=== PATIENT | female | born 1970 | race Caucasian/White ===

== ENCOUNTER 2019-03-05 09:17 | Emergency (ER) | payer OTHER, BC ==
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
[2019-03-05 10:19] LABS: ALT 24 U/L (9-52); AST 20 U/L (14-36); Albumin 4.6 g/dL (3.5-5.0); Alcohol <10 mg/dL; Alkaline Phosphatase 82 U/L (38-126); Anion Gap 8 mmol/L; Blood Urea Nitrogen 20 mg/dL (7-17); Calcium 10.3 mg/dL (8.4-10.2); Carbon Dioxide 26 mmol/L (22-30); Chloride 107 mmol/L (98-107); Creatine Kinase 57 U/L (30-135); Glucose 90 mg/dL (74-99); Potassium 4.1 mmol/L (3.5-5.1); Sodium 141 mmol/L (137-145); Total Bilirubin 0.5 mg/dL (0.2-1.3); Total Protein 7.3 g/dL (6.3-8.2)
[2019-03-05 10:25] LABS: Basophils % (A) 0 %; Eosinophils # (A) 0.2 k/uL (0-0.7); Eosinophils % (A) 3 %; HCT 44.6 % (34.0-46.0); HGB 14.7 gm/dL (11.4-16.0); Lymphocytes # (A) 0.8 k/uL (1.0-4.8); Lymphocytes % (A) 12 %; MCH 27.1 pg (25.0-35.0); MCV 82.1 fL (80.0-100.0); Mean Platelet Volume 6.9; Monocytes # (A) 0.6 k/uL (0-1.0); Monocytes % (A) 9 %; Neutrophils # (A) 5.3 k/uL (1.3-7.7); Neutrophils % (A) 73 %; Platelet Count 298 k/uL (150-450); RBC 5.43 m/uL (3.80-5.40); RDW 14.9 % (11.5-15.5); WBC 7.3 k/uL (3.8-10.6)
[2019-03-05 10:28] LABS: INR 0.9 (<1.2); Prothrombin Time 9.8 sec (9.0-12.0)
[2019-03-05 10:33] LABS: Partial Thromboplastin Time 21.8 sec (22.0-30.0)
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
[2019-03-05 11:03] LABS: Appearance,Urine Clear (Clear); Bacteria,Urine Rare /hpf; Bilirubin,Urine Negative (Negative); Blood,Urine Trace (Negative); Color,Urine Yellow; Glucose,Urine (UA) Negative (Negative); Ketones,Urine Negative (Negative); Leukocyte Esterase,Urine Negative (Negative); Mucus,Urine Rare /hpf; Nitrite,Urine Negative (Negative); PH, Urine 6.5 (5.0-8.0); Protein,Urine 2+ (Negative); RBC,Urine 1 /hpf (0-5); Specific Gravity,Urine 1.023 (1.001-1.035); Squamous Epithelial Cell,Urine 5 /hpf (0-4); Urobilinogen,Urine <2.0 mg/dL (<2.0); WBC,Urine 2 /hpf (0-5)
[2019-03-05 11:04] LABS: Amphetamine Screen,Urine Not Detected (NotDetected); Barbiturate Screen,Urine Not Detected (NotDetected); Benzodiazepines Screen,Urine Not Detected (NotDetected); Cocaine Screen,Urine Not Detected (NotDetected); Methadone Screen, Urine Not Detected (NotDetected); Opiate Screen,Urine Not Detected (NotDetected); Oxycodone Screen, Urine Not Detected (NotDetected); Phencyclidine Screen,Urine Not Detected (NotDetected); Tricyclic Antidepressant,Urine Not Detected (NotDetected); Urn Cannabinoid Scrn Not Detected (NotDetected)
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
[2019-03-05 13:23] VITALS: BP 145/99; PULSE 80; RESP 16; TEMP 98
== END 2019-03-05 13:22 | disposition home or self-care (01) ==
LOC: EC 09:17
DX: S93.402A Sprain of unspecified ligament of left ankle, initial encounter (principal); M79.18 Myalgia, other site; M54.5 Low back pain; G89.29 Other chronic pain; N63.0 Unspecified lump in unspecified breast; E04.1 Nontoxic single thyroid nodule; R91.8 Other nonspecific abnormal finding of lung field; Z79.51 Long term (current) use of inhaled steroids; Z79.899 Other long term (current) drug therapy; V53.5XXA Driver of pick-up truck or van injured in collision with car, pick-up truck or van in traffic accident, initial encounter; Y92.410 Unspecified street and highway as the place of occurrence of the external cause
CPT/HCPCS: 36415; 93005; 86900; 86901; 80053; 82550; 84484; 85025; 85610; 85730; 86850; 81001; 80306; 80320; 72170; 73610; 71045; 72125; 70450; 71260; 74177; 99285; Q9967

== ENCOUNTER → 2019-03-30 | Outpatient (CLI) | payer BC ==
--- NOTE | 2019-03-30 11:46 | MR ---
EXAMINATION TYPE: MR angio head wo con DATE OF EXAM: 03/30/2019 COMPARISON: CT dated 03/05/2019 HISTORY: previous abnormal CT TECHNIQUE: Time of flight images focusing on the [place] were performed without contrast.. 2-D and 3-D postprocessing imaging is performed. FINDINGS: The previously seen prominence of the basilar tip is not redemonstrated on today's examinat ion. No evidence of basilar tip aneurysm. Vertebral arteries are codominant. Visualized portions of t he internal carotid arteries are unremarkable without hemodynamically significant stenosis. Anterior commuting artery is patent with no aneurysm. Anterior cerebral arteries are unremarkable. Posterior c irculation is also unremarkable with diminutive bilateral posterior communicating arteries seen and t herefore the [place] appears complete. Middle cerebral arteries are symmetric without aneury smal formation or focal hemodynamically significant stenosis. IMPRESSION: No evidence of intracranial aneurysm, hemodynamically significant stenosis, focal occlusi on of the major intracranial vasculature or dissection. The previously seen basilar tip prominence do es not persist on today's examination and there is no evidence of basilar tip aneurysm.
== END | disposition home or self-care (01) ==
LOC: RADMRIMAIN 06:44
PROVIDERS: ATTEND Family Medicine
DX: R93.0 Abnormal findings on diagnostic imaging of skull and head, not elsewhere classified (principal)
CPT/HCPCS: 70544

== ENCOUNTER → 2019-05-30 | Outpatient (CLI) | payer BC ==
--- NOTE | 2019-05-31 12:08 | MM ---
Reason for exam: screening (asymptomatic). Last mammogram was performed 7 years and 4 months ago. History: Patient is nulliparous. Family history of breast cancer in maternal grandmother at age 42 and breast cancer in sister at age 45. Physical Findings: A clinical breast exam by your physician is recommended on an annual basis and results should be correlated with mammographic findings. MG Screening Mammo w CAD Bilateral CC and MLO view(s) were taken. Prior study comparison: February 01, 2012, mammogram, performed at [place]. There is a new 2.0cm left upper outer quadrant mass 3cm from nipple for which ultrasound will be performed. There are increased calcifications on both breasts predominating in the upper outer quadrants. Magnification views recommended to evaluate for any suspicious groups. ASSESSMENT: Incomplete: need additional imaging evaluation, BI-RAD 0 RECOMMENDATION: Special view mammogram of both breasts. Ultrasound of the left breast. [facility] will attempt to contact patient to return for supplemental views and ultrasound.
== END | disposition home or self-care (01) ==
LOC: RADMAMWWP 13:13
PROVIDERS: ATTEND Family Medicine
DX: Z12.31 Encounter for screening mammogram for malignant neoplasm of breast (principal)
CPT/HCPCS: 77067

== ENCOUNTER → 2019-06-15 | Outpatient (CLI) | payer BC ==
--- NOTE | 2019-06-18 08:07 | MM ---
Reason for exam: additional evaluation requested from abnormal screening. Last mammogram was performed 1 month ago. History: Patient is nulliparous. Family history of breast cancer in maternal grandmother at age 42 and breast cancer in sister at age 45. Physical Findings: Nurse Summary: 1.5cm nodule in the left breast at 2 o'clock (nurse TM). MG 3D Work Up W/Cad JOHNSON Bilateral CC with magnification, LM with magnification, and LM view(s) were taken. Prior study comparison: May 30, 2019, bilateral MG screening mammo w CAD. February 01, 2012, mammogram, performed at [place]. The breast tissue is heterogeneously dense. This may lower the sensitivity of mammography. There is a benign appearing round oval circumscribed mass with a large new mass on the left in the upper outer quadrant at anterior middle depth. Ultrasound is benign perfomred for this finding. Finding: There are diffuse/scattered calcifications in both breasts throughout both breast with no clear focal suspicious group on the right most of the calcifications layer compatible with benign milk of calcium, 6 month follow up for both breasts. These results were verbally communicated with the patient and result sheet given to the patient on 06/15/19. ASSESSMENT: Probably benign, BI-RAD 3 RECOMMENDATION: Follow-up diagnostic mammogram of both breasts in 6 months.
--- NOTE | 2019-06-18 08:08 | USB ---
Reason for exam: additional evaluation requested from abnormal screening. History: Patient is nulliparous. Family history of breast cancer in maternal grandmother at age 42 and breast cancer in sister at age 45. US Breast Workup Limited LT Left limited breast ultrasound including focal area of concern, retroareolar and axilla demonstrates a 1.9 x 1.4 x 1.8cm oval, cystic, benign lesion at 2 o'clock and a 0.7 x 0.8 x 0.8cm oval, cystic, benign lesion at 3 o'clock. These results were verbally communicated with the patient and result sheet given to the patient on 06/15/19. ASSESSMENT: Probably benign, BI-RAD 3 RECOMMENDATION: Follow-up diagnostic mammogram of both breasts in 6 months. (regarding calcifications)
== END | disposition home or self-care (01) ==
LOC: RADMAMWWP 14:09
PROVIDERS: ATTEND Family Medicine
DX: R92.8 Other abnormal and inconclusive findings on diagnostic imaging of breast (principal)
CPT/HCPCS: 77062; 77066

== ENCOUNTER → 2019-09-27 | Outpatient (CLI) | payer BC ==
--- NOTE | 2019-09-28 07:11 | CT ---
EXAMINATION TYPE: CT chest wo con DATE OF EXAM: 09/27/2019 COMPARISON: Prior chest CT March 05, 2019 HISTORY: Solitary pulmonary nodule. Prior abnormal CT. CT DLP: 278.5 mGycm. Automated Exposure Control for Dose Reduction was Utilized. TECHNIQUE: CT scan of the thorax is performed without IV contrast. FINDINGS: LUNGS: Prior visualized 6 mm posterior subpleural left nodule is actually within superior aspect left lower lobe on prior study image 19 there is now not clearly identified suspect interval resolved ate lectasis. There is however new more patchy groundglass opacity in the left upper lobe with more suspi cious central 10 x 9 mm left upper lobe nodule or nodular consolidation axial image 17 with additiona l few smaller additional areas of adjacent nodular consolidation or nodules throughout the left upper lobe. Right lung remains clear. No pleural effusion or pneumothorax is seen bilaterally. MEDIASTINUM: Lack of IV contrast is noted to limit evaluation for mediastinal and especially hilar ad enopathy. There are no definitive greater than 1 cm hilar or mediastinal lymph nodes. No cardiomega ly or pericardial effusion is seen. OTHER: Mild multilevel spurring. IMPRESSION: Interval resolution of prior 6 mm posterior subpleural nodule or nodular consolidation bu t there is new more irregular left upper lobe central groundglass opacity with areas of nodular conso lidation/nodules including a dominant 10 x 9 mm central area of concern. Consider repeat CT in 3 elle hs time to reassess or PET/CT to further evaluate.
== END | disposition home or self-care (01) ==
LOC: RADCTMAIN 16:27
PROVIDERS: ATTEND Family Medicine
DX: R91.8 Other nonspecific abnormal finding of lung field (principal)
CPT/HCPCS: 71250

== ENCOUNTER → 2020-03-05 | Outpatient (CLI) | payer BC ==
--- NOTE | 2020-03-05 15:48 | CT ---
EXAMINATION TYPE: CT chest wo con DATE OF EXAM: 03/05/2020 COMPARISON: Prior CT is September 27, 2019 and March 05, 2019. HISTORY: follow up lung nodule CT DLP: 212.9 mGycm. Automated Exposure Control for Dose Reduction was Utilized. TECHNIQUE: CT scan of the thorax is performed without IV contrast. FINDINGS: LUNGS: Areas of groundglass opacity with central nodularity in the central aspect left upper lobe isa w interval complete resolution on current study. No new areas of suspicious focal consolidation. No pleural effusion or pneumothorax seen bilaterally. No new greater than 4 mm pulmonary nodules or . The tracheobronchial tree is patent. MEDIASTINUM: Lack of IV contrast is noted to limit evaluation for mediastinal and especially hilar ad enopathy. There are no definitive greater than 1 cm hilar or mediastinal lymph nodes. No cardiomega ly or pericardial effusion is seen. OTHER: No additional significant abnormality is seen. IMPRESSION: Interval resolution of left upper lobe groundglass and nodular acute infiltrate. No suspi cious new or residual nodules.
== END | disposition home or self-care (01) ==
LOC: RADCTMAIN 15:00
PROVIDERS: ATTEND Family Medicine
DX: R91.1 Solitary pulmonary nodule (principal)
CPT/HCPCS: 71250

== ENCOUNTER 2020-09-01 12:35 | Emergency (ER) | payer BC, OTHER ==
[2020-09-01 12:52] VITALS: BP 142/92; PULSE 69; RESP 18; TEMP 97.9
--- NOTE | 2020-09-01 13:07 | ED ---
General Adult HPI - General Chief complaint: Extremity Injury, Lower Stated complaint: rt knee pain Time Seen by Provider: 09/01/20 12:55 Source: patient, RN notes reviewed Mode of arrival: wheelchair Limitations: no limitations - History of Present Illness Initial comments: Patient is a pleasant 49-year-old female presenting to the emergency Department with complaints of right knee pain. Patient states she got off her horse and was walking in the mud. Patient states her knee slipped on her. Patient has had pain and swelling since that time. Onset of symptoms was a couple of days ago. Patient does have history of similar symptoms previously and does have previous meniscal injury. Patient has noticed some swelling. - Related Data Home Medications Medication Instructions Recorded Confirmed Cetirizine HCl [Zyrtec] 10 mg PO DAILY 03/05/19 03/05/19 Fluticasone Nasal Reserve [Flonase 1 spr EA NOSTRIL DAILY 03/05/19 03/05/19 Nasal Reserve] Gabapentin [Neurontin] 300 mg PO BID 03/05/19 03/05/19 Ibuprofen [Motrin] 800 mg PO BID 03/05/19 03/05/19 Multivitamin [Multivitamins Adult 1 tab PO DAILY 03/05/19 03/05/19 Gummies] Allergies Allergy/AdvReac Type Severity Reaction Status Date / Time No Known Allergies Allergy Verified 09/01/20 12:52 Review of Systems ROS Statement: Those systems with pertinent positive or pertinent negative responses have been documented in the HPI. ROS Other: All systems not noted in ROS Statement are negative. Constitutional: Denies: fever, chills Eyes: Denies: eye pain ENT: Denies: ear pain Respiratory: Denies: cough, dyspnea Cardiovascular: Denies: chest pain Endocrine: Denies: fatigue Gastrointestinal: Denies: abdominal pain, vomiting Genitourinary: Denies: dysuria Musculoskeletal: Reports: as per HPI, joint swelling, arthralgia Skin: Denies: rash Neurological: Denies: weakness Past Medical History Additional Past Medical History / Comment(s): sinus tachycardia and chronic back pain History of Any Multi-Drug Resistant Organisms: None Reported Past Surgical History: Back Surgery, Orthopedic Surgery Additional Past Surgical History / Comment(s): lumbar spine and R knee Past Psychological History: No Psychological Hx Reported Past Alcohol Use History: None Reported Past Drug Use History: None Reported General Exam Limitations: no limitations General appearance: alert, in no apparent distress Head exam: Present: normocephalic Eye exam: Present: normal appearance Neck exam: Present: normal inspection Respiratory exam: Present: normal lung sounds bilaterally Cardiovascular Exam: Present: regular rate, normal rhythm Expanded Peripheral pulses: 2+: Posterior Tibialis (R), Dorsalis Pedis (R) Extremities exam: Present: joint swelling (Right knee with mild to moderate effusion, tenderness in the area of the medial meniscus.), other (Distal strength intact as well as sensation). Absent: calf tenderness Neurological exam: Present: alert. Absent: motor sensory deficit Psychiatric exam: Present: normal affect, normal mood Skin exam: Present: normal color Course Vital Signs 09/01/20 12:49 Temperature 97.9 F Pulse Rate 69 Respiratory 18 Rate Blood Pressure 142/92 O2 Sat by Pulse 99 Oximetry Medical Decision Making - Medical Decision Making Patient reevaluated and updated. - Radiology Data Radiology results: image reviewed (X-ray of the right knee does show suprapatellar fluid collection.) Disposition Clinical Impression: Knee injury Disposition: HOME SELF-CARE Condition: Stable Instructions (If sedation given, give patient instructions): Knee Sprain (ED) Additional Instructions: Please follow-up with primary care physician and orthopedics in the next couple days for recheck. Return for increased pain, swelling, redness, worsening sympt oms or other concerns. [id number] Motrin as needed. Ice. Is patient prescribed a controlled substance at d/c from ED?: No Referrals: Faheem Alarcon MD [Primary Care Provider] - 1-2 days Lei Nogueira MD [STAFF PHYSICIAN] - 1-2 days Time of Disposition: 14:01
--- NOTE | 2020-09-01 13:21 | XR ---
EXAMINATION TYPE: XR knee complete RT DATE OF EXAM: 09/01/2020 COMPARISON: NONE HISTORY: Pain TECHNIQUE: Three views are submitted. FINDINGS: There is moderate narrowing of the medial compartment of the knee joint. There is a stable moderate-s ized suprapatellar bursal fluid collection.. Osseous structures are intact. No acute fracture seen. IMPRESSION: 1. Osteoarthritis with suprapatellar bursal fluid collection. If there is concern for internal derang ement of the knee correlate with MRI as clinically warranted.
[2020-09-01] MEDS ORDERED: ACET/COD 300 MG/30 MG STARTER PACK 6 TAB BTL PO STA (14:00)
== END 2020-09-01 14:39 | disposition home or self-care (01) ==
LOC: EC 12:35
DX: S89.90XA Unspecified injury of unspecified lower leg, initial encounter (principal); G89.29 Other chronic pain; M54.9 Dorsalgia, unspecified; Z79.899 Other long term (current) drug therapy; Z79.1 Long term (current) use of non-steroidal anti-inflammatories (NSAID); Z79.51 Long term (current) use of inhaled steroids; Z98.890 Other specified postprocedural states; W01.0XXA Fall on same level from slipping, tripping and stumbling without subsequent striking against object, initial encounter; Y93.01 Activity, walking, marching and hiking
CPT/HCPCS: 73562; 99283; L1830

== ENCOUNTER → 2020-10-08 | Outpatient (CLI) | payer MEDICAID ==
--- NOTE | 2020-10-09 07:02 | MR ---
EXAMINATION TYPE: MR knee RT wo con DATE OF EXAM: 10/08/2020 COMPARISON: Right knee x-ray September 12, 2020. HISTORY: Right knee pain. Pain with locking and swelling after twisting injury 6 weeks ago. TECHNIQUE: Multiplanar, multisequence imaging of the right knee is performed without IV contrast. FINDINGS: MEDIAL MENISCUS: Medial extrusion medial meniscus on coronal images. Anterior horn is intact without tear. Posterior horn is emaciated with abnormal signal extending into the central body consistent wit h full-thickness tear. LATERAL MENISCUS: Anterior and posterior horns are intact without tear. CRUCIATE LIGAMENTS: The posterior cruciate ligament is intact. Anterior cruciate ligament is complete ly torn at mid substance sagittal image 16 for reference within the intercondylar notch. COLLATERAL LIGAMENTS: The medial collateral ligament and lateral collateral ligament complex are inta ct and unremarkable. EXTENSOR MECHANISM: Visualized quadriceps and patellar tendons are intact. EFFUSION: Moderate size suprapatellar joint effusion extending laterally. POPLITEAL CYST: No popliteal/gonzalez cyst. TRICOMPARTMENT SPACES: Mild tricompartment joint space loss with minimal spurring. CARTILAGE: Some fissuring of articular cartilage medial tibiofemoral compartment coronal image 20. No significant chondromalacia patella. BONE MARROW SIGNAL: Heterogeneity consistent with red marrow reconversion. No significant edema. OTHER: Ullg-oq-ymqmuhle subcutaneous edema anterior superficial infrapatellar space in the region of tibial tuberosity. IMPRESSION: 1. Complete ACL tear. 2. Full-thickness tear posterior horn medial meniscus extending into Central body. 3. Mild tricompartment degenerative changes as detailed above. 4. Moderate sized suprapatellar joint effusion.
== END | disposition home or self-care (01) ==
LOC: RADMRIMAIN 20:16
PROVIDERS: ATTEND Orthopaedic Surgery
DX: S83.511A Sprain of anterior cruciate ligament of right knee, initial encounter (principal); S83.241A Other tear of medial meniscus, current injury, right knee, initial encounter; M17.11 Unilateral primary osteoarthritis, right knee

== ENCOUNTER → 2020-10-22 | Outpatient (CLI) | payer MEDICAID ==
[2020-10-22 15:08] LABS: Basophils % (A) 1 %; Eosinophils # (A) 0.3 k/uL (0-0.7); Eosinophils % (A) 4 %; HCT 44.1 % (34.0-46.0); HGB 14.2 gm/dL (11.4-16.0); Lymphocytes # (A) 1.6 k/uL (1.0-4.8); Lymphocytes % (A) 19 %; MCH 27.6 pg (25.0-35.0); MCHC 32.2 g/dL (31.0-37.0); MCV 85.9 fL (80.0-100.0); Mean Platelet Volume 7.1; Monocytes # (A) 0.7 k/uL (0-1.0); Monocytes % (A) 9 %; Neutrophils # (A) 5.5 k/uL (1.3-7.7); Neutrophils % (A) 65 %; Platelet Count 286 k/uL (150-450); RBC 5.13 m/uL (3.80-5.40); WBC 8.4 k/uL (3.8-10.6)
[2020-10-22 15:12] LABS: Potassium 4.4 mmol/L (3.5-5.1)
== END | disposition home or self-care (01) ==
LOC: LABPAT 14:09
PROVIDERS: ATTEND Orthopaedic Surgery
DX: S83.511D Sprain of anterior cruciate ligament of right knee, subsequent encounter (principal)
CPT/HCPCS: 36415; 80051; 85025; 93005

== ENCOUNTER 2020-11-13 07:43 | Day surgery (SDC) | payer MEDICAID ==
[2020-11-12 10:37] VITALS: BMI 30.9
--- NOTE | 2020-11-12 16:37 | HP ---
HISTORY AND PHYSICAL DATE OF SURGERY: 11/13/2020 Rachele Kyle is a 50-year-old patient seen with right knee pain, instability consistent with anterior cruciate ligament tear. We discussed options with her. She elected to proceed with arthroscopy to include allograft, ACL reconstruction, partial meniscectomy and debridement. Consent was obtained. PAST MEDICAL HISTORY: Hypertension. PAST SURGICAL HISTORY: Knee arthroscopy, spine surgery. DAILY MEDICATIONS: 1. Losartan. 2. Propranolol. 3. Meloxicam. ALLERGIES: SULFA. SOCIAL HISTORY: She denies current tobacco use. PHYSICAL EVALUATION OF THE RIGHT KNEE: Range of motion is -7 to 90. Moderate effusion. Tenderness medial joint line. Positive medial Shant's. A +1 / 2 [place]. No end point felt. Distal neurovascular exam is intact. Radiographs right knee revealed mild osteoarthritis. MRI right knee revealed medial meniscal tear, anterior cruciate ligament tear and moderate effusion. IMPRESSION: 1. Internal derangement, right knee with medial meniscal tear and anterior cruciate ligament tear. 2. Hypertension. PLAN: Right knee arthroscopy with allograft, ACL reconstruction, partial meniscectomy and debridement. MMODL / IJN: [id number] /
[~2020-11-13 07:43] MED LIST: DEXAMETHASONE SOD PHOSPHATE 4 MG/ML 1 ML VIAL IV ONE; HYDROmorphone 0.5 MG/0.5 ML SYRINGE IVP PRN; LACTATED RINGERS 1,000 ML IV SCH; ONDANSETRON 4 MG/2 ML VIAL IVP ONE
[2020-11-13] MEDS ORDERED: LIDOCAINE 1% (10MG/ML) FOR IV START INTRADERMA ONE (08:21)
[2020-11-13] MEDS ORDERED: fentaNYL (PF) 50 MCG/ML 2 ML AMP ONE (09:20)
[2020-11-13] MEDS ORDERED: PHENYLEPHRINE-0.9% NACL SYG 1,000 MCG/10 ML SYRINGE ONE (09:20)
[2020-11-13] MEDS ORDERED: SUCCINYLCHOLINE CHLORIDE 100 MG/5 ML SYR IV ONE (09:20)
[2020-11-13] MEDS ORDERED: LIDOCAINE 1% INJ 10MG/ML (20 ML MDV) ONE (09:20)
[2020-11-13] MEDS ORDERED: HYDROmorphone (PF) 1 MG/ML ONE (09:20)
[2020-11-13] MEDS ORDERED: MIDAZOLAM 2 MG/2 ML VIAL ONE (09:20)
[2020-11-13] MEDS ORDERED: PROPOFOL 10 MG/ML 20 ML VIAL IV ONE (09:20)
[2020-11-13] MEDS ORDERED: SCOPOLAMINE 1.5MG/72HR PATCH TRANSDERM ONE (09:21)
[2020-11-13] MEDS ORDERED: LACTATED RINGERS 1,000 ML IV ONE (10:04)
[2020-11-13] MEDS ORDERED: BUPIVACAINE (PF) 0.25% 30 ML VIAL INTRAARTIC ONE (11:13)
[2020-11-13 11:46] VITALS: TEMP 97.6
--- NOTE | 2020-11-13 11:47 | P.OP ---
Date of Procedure: 11/13/20 Preoperative Diagnosis: Internal derangement right knee Postoperative Diagnosis: 1. ACL tear right knee 2. Tear medial meniscus right knee 3. Grade 4 chondromalacia medial femoral condyle right knee 4. Reactive synovitis medial, lateral and suprapatellar compartments right knee Procedure(s) Performed: 1. Arthroscopic allograft ACL reconstruction right knee 2. Arthroscopic partial medial meniscectomy right knee 3. Arthroscopic microfracture medial femoral condyle right knee 4. Arthroscopic partial synovectomy medial, lateral and suprapatellar compartments right knee Implants: 2-Arthrex Endobutton's and 14.75 swivel lock anchor Anesthesia: MADELEINE, local Surgeon: Saroj Varner Architect [employer] #1: Roberto Patino Estimated Blood Loss (ml): 20 Pathology: none sent Condition: stable Disposition: PACU Indications for Procedure: 50-year-old patient seen with right knee pain and instability consistent with ACL tear and meniscal tear. After treatment options were discussed with her, she elected to proceed with arthroscopy to include allograft ACL reconstruction. Operative Findings: see description of procedure Description of Procedure: Patient was taken to the operative suite. Patient underwent a general anesthetic by the department of anesthesia. Patient was given preoperative antibiotics. The right lower extremity was placed in a well-padded arthroscopic leg jones. The right leg was prepped and draped in the normal sterile orthopedic fashion. A lateral parapatellar and suprapatellar incision was made. Trochars were inserted. Arthroscopy was initiated. Suprapatellar pouch revealed diffuse thick reactive synovitis. The patellofemoral joint appeared to articulate congruently. There with grade 1 chondromalacia. The scope was guided into the medial gutter. No loose bodies or plica were identified. The scope was then guided into the medial compartment. A medial parapatellar incision was made. Trocar inserted followed by probe. There was a complex tear posterior horn medial meniscus. There were 2 areas of grade 4 chondromalacia medial femoral condyle with bony exposure. There was thick reactive synovitis anteriorly. Scope and probe were then guided into the intercondylar notch. Complete tear of the anterior cruciate ligament noted. At this point the allograft was opened and Desean GOSS began preparing that allograft for implantation. I guided the scope back into the medial compartment. I performed a partial medial meniscectomy. I performed a light chondroplasty around those femoral condylar defects. I performed a partial synovectomy decompressing the thick reactive synovitis anteriorly. I performed a microfracture to both the areas of grade 4 chondromalacia and bony exposure medial femoral condyle pene trating the bone with resultant bleeding at the microfracture sites. The peripheral osteochondral surfaces were again probed and found to be stable. The residual meniscus was stable. There was good decompression of the synovitis. The scope and probe were then guided into lateral compartment. lateral meniscus was probed and found to be stable. There was grade 1, she changes lateral compartment. There was thick reactive synovitis anteriorly. There was also loose body noted lateral compartment. I removed the loose body without difficulty. I performed a partial synovectomy decompressing thick reactive synovitis anteriorly. The shaver was removed. There was good decompression of the synovitis. I now guided the scope into the intercondylar notch area. I debrided out the torn remnants of the anterior cruciate ligament. I performed a notchplasty. I now with assistance of Desean GOSS created our femoral and tibial tunnels which show sutures. We now shuttled the graft into the joint first into the femoral tunnel flipping the Endobutton and then guiding the graft into the tunnel. We now shuttled the tibial side of the graft into our tibial tunnel. Desean GOSS assisted with all aspects of the shuttling and securing of the graft. We now took the knee in full extension noted good tension of the graft. I now extended the medial incision and introduced a Arthrex Endobutton and cinched down our sutures on the tibial side noting good fixation. I did use a internal brace suture and now secured that internal brace suture with one 4.75 Arthrex swivel lock anchor in a proximal tibial area. We again retention the sutures on the femoral side to achieve adequate tensioning of the graft. We noted good tension of the graft and good position of the graft. Residual suture limbs were clipped. The scope was in guided back into the suprapatellar compartment. I introduced a motorized shaver into the super compartment. I debrided some piecemeal fragments of meniscus I encountered. I performed a partial synovectomy decompressing thick reactive synovitis. The shaver was removed. I took one more look on the entire knee, no residual debris. Instruments were now removed from the joint. The joint was infiltrated with .25% Marcaine. I repaired all the incisions and portal sites with nylon suture. Sterile dressings were applied. The placed was placed into a knee immobilizer. No tourniquet was utilized. The patient was awakened, transferred to a bed and taken to recovery stable satisfactory condition. Desean GOSS assisted with all aspects of this procedure.
[2020-11-13 11:56] VITALS: RESP 16
[2020-11-13] MEDS ORDERED: HYDROcodone/APAP 7.5-325MG 1 EACH TAB ONE (12:15)
[2020-11-13] MEDS ORDERED: HYDROcodone/APAP 7.5-325MG 1 EACH TAB PO ONE (12:18)
[2020-11-13 13:57] VITALS: BP 156/74; PULSE 88
== END 2020-11-13 14:13 | disposition home or self-care (01) ==
LOC: OR 07:43
PROVIDERS: ATTEND Orthopaedic Surgery
DX: S83.511A Sprain of anterior cruciate ligament of right knee, initial encounter (principal); M23.221 Derangement of posterior horn of medial meniscus due to old tear or injury, right knee; M94.261 Chondromalacia, right knee; M65.861 Other synovitis and tenosynovitis, right lower leg; M17.11 Unilateral primary osteoarthritis, right knee; I10 Essential (primary) hypertension; Z88.2 Allergy status to sulfonamides; Z91.030 Bee allergy status; Z91.09 Other allergy status, other than to drugs and biological substances; J45.909 Unspecified asthma, uncomplicated; E07.9 Disorder of thyroid, unspecified; Z79.899 Other long term (current) drug therapy
CPT/HCPCS: 29879; 29881; 29888; 81025; C1713 ×3; Q4212; C1762; J2250; J1100; J2405; J0690; J2001; J3010; J1170; J2370; J0330; J2704

== ENCOUNTER → 2021-05-28 | Outpatient (CLI) | payer MEDICAID ==
--- NOTE | 2021-06-01 12:32 | MM ---
Reason for exam: screening (asymptomatic). Last mammogram was performed 1 year and 11 months ago. History: Patient is nulliparous. Family history of breast cancer in maternal grandmother at age 42 and breast cancer in sister at age 45. Physical Findings: A clinical breast exam by your physician is recommended on an annual basis and results should be correlated with mammographic findings. MG 3D Screening Mammo W/Cad Bilateral CC and MLO view(s) were taken. Prior study comparison: May 30, 2019, bilateral MG screening mammo w CAD. No significant changes when compared with prior studies. ASSESSMENT: Benign, BI-RAD 2 RECOMMENDATION: Routine screening mammogram of both breasts in 1 year.
== END | disposition home or self-care (01) ==
LOC: RADMAMWWP 12:50
PROVIDERS: ATTEND Family Medicine
DX: Z12.31 Encounter for screening mammogram for malignant neoplasm of breast (principal); Z80.3 Family history of malignant neoplasm of breast
CPT/HCPCS: 77063; 77067

== ENCOUNTER → 2021-11-16 | Outpatient (CLI) | payer MEDICAID ==
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
== END | disposition home or self-care (01) ==
LOC: RADMRIMAIN 11:56
PROVIDERS: ATTEND Physician Assistant
DX: G43.909 Migraine, unspecified, not intractable, without status migrainosus (principal); J32.8 Other chronic sinusitis
CPT/HCPCS: 70553; A9585

== ENCOUNTER → 2022-01-15 | Outpatient (CLI) | payer MEDICAID ==
--- NOTE | 2022-01-15 21:15 | MR ---
EXAMINATION TYPE: MR knee LT wo con DATE OF EXAM: 01/15/2022 COMPARISON: Outside left knee x-ray June 16, 2021 HISTORY: Left knee pain with locking and swelling, twisting injury 3 mos ago. TECHNIQUE: Multiplanar, multisequence imaging of the left knee is performed without IV contrast. FINDINGS: MEDIAL MENISCUS: Marked deformity of the medial meniscus with flipped meniscus anteriorly identified. LATERAL MENISCUS: Anterior and posterior horns are intact without tear. CRUCIATE LIGAMENTS: Posterior cruciate ligament is intact and unremarkable. Nonvisualized anterior cr uciate ligament consistent with complete tear. COLLATERAL LIGAMENTS: The medial collateral ligament and lateral collateral ligament complex are inta ct and unremarkable. EXTENSOR MECHANISM: Visualized quadriceps and patellar tendons are intact. EFFUSION: Small suprapatellar joint effusion. POPLITEAL CYST: No popliteal/gonzalez cyst. TRICOMPARTMENT SPACES: [id number]-[id number] tricompartment joint space loss with mild spurring. CARTILAGE: Chondromalacia patella with thinning of articular cartilage along posterior patellar pole. An additional cartilaginous loss medial lateral tibiofemoral compartments. BONE MARROW SIGNAL: Heterogeneity consistent with red marrow reconversion.. OTHER: No additional significant abnormality is appreciated. IMPRESSION: 1. Complete ACL tear. 2. Large displaced medial meniscal tear. 3. Mild to moderate tricompartment degenerative changes as detailed above. 4. Small suprapatellar joint effusion.
== END | disposition home or self-care (01) ==
LOC: RADMRIMAIN 17:36
PROVIDERS: ATTEND Orthopaedic Surgery
DX: S83.512A Sprain of anterior cruciate ligament of left knee, initial encounter (principal); S83.242A Other tear of medial meniscus, current injury, left knee, initial encounter; M25.462 Effusion, left knee; M17.12 Unilateral primary osteoarthritis, left knee; X58.XXXA Exposure to other specified factors, initial encounter

== ENCOUNTER → 2022-05-18 | Outpatient (CLI) | payer MEDICAID ==
[2022-05-18 18:00] LABS: HCT 45.5 % (37.2-46.3); HGB 14.8 g/dL (12.0-15.0); MCH 27.8 pg (27.0-32.0); MCHC 32.5 g/dL (32.0-37.0); MCV 85.5 fL (80.0-97.0); NRBC Per 100 WBC 0 /100 WBCS (0.0-0.0); Platelet Count 371 X 10*3/uL (140-440); RBC 5.32 X 10*6/uL (4.10-5.20); RDW 14.3 % (11.5-14.5); WBC 8.01 X 10*3/uL (4.50-10.00)
[2022-05-18 19:13] LABS: ALT 20 U/L (8-44); AST 18 U/L (13-35); African American GFR (CKD) 85.2 (60.0-200.0); Albumin 4.2 g/dL (3.8-4.9); Albumin/Globulin Ratio 1.83 (1.60-3.17); Alkaline Phosphatase 76 U/L (41-126); BUN/Creat Ratio 14.89 Ratio (12.00-20.00); Blood Urea Nitrogen 13.4 mg/dL (9.0-27.0); Calcium 9.7 mg/dL (8.7-10.3); Carbon Dioxide 24.7 mmol/L (20.0-27.5); Chloride 105 mmol/L (96-109); Chol/HDL Ratio 4.35 Ratio; Globulin 2.3 g/dL (1.6-3.3); Glucose 98 mg/dL (70-110); LDL Cholesterol,Calculated 145.3 mg/dL (0.0-131.0); Non-African American GFR(CKD) 73.5 (60.0-200.0); Potassium 4.1 mmol/L (3.5-5.5); Sodium 140 mmol/L (135-145); Total Protein 6.5 g/dL (6.2-8.2)
[2022-05-18 23:36] LABS: Urine Alcohol Negative (Negative); Urine Barbiturate Negative (Negative); Urine Cocaine Negative (Negative); Urine Methadone Negative (Negative); Urine Opiates Negative (Negative); Urine Phencyclidine Negative (Negative)
== END | disposition home or self-care (01) ==
LOC: LABWHC1 11:10
PROVIDERS: ATTEND Physician Assistant
DX: Z00.00 Encounter for general adult medical examination without abnormal findings (principal)
CPT/HCPCS: 36415; 80053; 80061; 80306; 83036; 84436; 84443; 85027

== ENCOUNTER → 2022-07-28 | Outpatient (CLI) | payer MEDICAID | END | disposition home or self-care (01) | LOC: LABWHC1 12:46 | PROVIDERS: ATTEND Physician Assistant | DX: J44.9 Chronic obstructive pulmonary disease, unspecified (principal) | CPT/HCPCS: 36415 ==

== ENCOUNTER → 2022-08-20 | Outpatient (CLI) | payer MEDICAID ==
--- NOTE | 2022-08-20 20:03 | MR ---
EXAMINATION TYPE: MR lumbar spine wo con DATE OF EXAM: 08/20/2022 7:22 PM COMPARISON: Radiograph 08/02/2022. CLINICAL INDICATION:Female, 51 years old with history of M47.26 SPONDYLOSIS WITH RADICULOPATHY,; TECHNIQUE: Multi planar, multi sequence imaging was performed utilizing: T1-weighted, T2-weighted, a nd turbo inversion recovery imaging of the lumbar spine. IV Contrast: None. FINDINGS: Alignment: The lumbar vertebral bodies have preserved heights and alignment. Cord: The conus medullaris and the distal spinal cord appear unremarkable with regards to their signa l intensity and morphology. Bones/Discs: Bone signal is within normal limits. Multilevel degenerative disc disease is noted and most pronounced at the L4-L5 and L5-S1. Bony endplate edema seen at the adjoining endplates of L4-L5 posteriorly. Disc desiccation of the lower lumbar spine. L1-L2: No evidence of significant spinal canal stenosis or neural foraminal stenosis. L2-L3: No evidence of significant spinal canal stenosis or neural foraminal stenosis. L3-L4: Disc bulge and facet joint arthropathy with mild spinal canal stenosis. An mild right and mode rate left neural foraminal stenosis. L4-L5: Disc bulge and asymmetric right facet joint arthropathy result in moderate spinal canal stenos is with displacement of the right-sided nerve roots in the thecal sac medially. There is severe right and moderate left neural foraminal stenosis. Superimposed central extrusion felt to be present with 4 mm migration of disc material inferiorly. L5-S1 degeneration changes with facet joint arthropathy result in severe right and moderate left neur al foraminal stenosis. The spinal canal is patent. Other findings: None. IMPRESSION: 1. Multilevel disc degeneration changes worse in the lower lumbar spine. 2. L4-L5 moderate spinal canal stenosis secondary to asymmetric right facet joint arthropathy with h ypertrophy which displaces the nerve roots on the right medially. Additional severe right and moderat e left neural foraminal stenosis at this level. 3. L4-L5 central herniation with inferior migration of disc material. 4. L5-S1 severe right neural foraminal stenosis.
== END | disposition home or self-care (01) ==
LOC: RADMRIMAIN 17:43
PROVIDERS: ATTEND Orthopaedic Surgery
DX: M47.26 Other spondylosis with radiculopathy, lumbar region (principal); M51.16 Intervertebral disc disorders with radiculopathy, lumbar region; M48.061 Spinal stenosis, lumbar region without neurogenic claudication; M99.73 Connective tissue and disc stenosis of intervertebral foramina of lumbar region
CPT/HCPCS: 72148

== ENCOUNTER → 2023-02-19 | Outpatient (CLI) | payer OTHER ==
[2023-02-20 07:29] LABS: HGB 14.3 g/dL (12.0-15.0); MCH 27.1 pg (27.0-32.0); MCHC 32.5 g/dL (32.0-37.0); MCV 83.3 fL (80.0-97.0); Mean Platelet Volume 9.8 fL (9.5-12.2); NRBC Per 100 WBC 0 /100 WBCS (0.0-0.0); Platelet Count 307 X 10*3/uL (140-440); RBC 5.28 X 10*6/uL (4.10-5.20); RDW 13.1 % (11.5-14.5); WBC 6.26 X 10*3/uL (4.50-10.00)
[2023-02-20 10:41] LABS: ALT 23 U/L (8-44); AST 18 U/L (13-35); African American GFR (CKD) 99.8 (60.0-200.0); Albumin 4.4 g/dL (3.8-4.9); Albumin/Globulin Ratio 2.08 (1.60-3.17); Alkaline Phosphatase 93 U/L (41-126); BUN/Creat Ratio 17.96 Ratio (12.00-20.00); Blood Urea Nitrogen 14.1 mg/dL (9.0-27.0); Calcium 9.6 mg/dL (8.7-10.3); Chloride 106 mmol/L (96-109); Chol/HDL Ratio 4.01 Ratio; Globulin 2.1 g/dL (1.6-3.3); Glucose 92 mg/dL (70-110); LDL Cholesterol,Calculated 143.1 mg/dL (0.0-131.0); Non-African American GFR(CKD) 86.1 (60.0-200.0); Potassium 3.9 mmol/L (3.5-5.5); Sodium 141 mmol/L (135-145); Total Protein 6.5 g/dL (6.2-8.2)
== END | disposition home or self-care (01) ==
LOC: LABPAT 10:52
PROVIDERS: ATTEND Internal Medicine Interventional Cardiology
DX: Z01.812 Encounter for preprocedural laboratory examination (principal); R94.39 Abnormal result of other cardiovascular function study; E78.2 Mixed hyperlipidemia
CPT/HCPCS: 80053; 80061; 85027

== ENCOUNTER 2023-02-24 10:23 | Day surgery (SDC) | payer MEDICAID, OTHER ==
[~2023-02-24 10:23] MED LIST changes: +ALPRAZolam 0.25 MG TAB PO PRN; +ALPRAZolam 0.5 MG TAB PO PRN; +ASPIRIN 325 MG TAB PO ONE; -DEXAMETHASONE SOD PHOSPHATE 4 MG/ML 1 ML VIAL IV ONE; -HYDROmorphone 0.5 MG/0.5 ML SYRINGE IVP PRN; -LACTATED RINGERS 1,000 ML IV SCH; +NITROGLYCERIN SL TABS 0.4 MG TAB SUBLINGUAL PRN; -ONDANSETRON 4 MG/2 ML VIAL IVP ONE; +SODIUM CHLORIDE 0.9% 1,000 ML in EMPTY BAG 1 BAG IV SCH
[2023-02-24] MEDS ORDERED: SODIUM CHLORIDE 0.9% 1,000 ML IV ONE (10:29)
[2023-02-24 10:50] VITALS: TEMP 98.2
[2023-02-24] MEDS ORDERED: fentaNYL (PF) 50 MCG/ML 2 ML AMP ONE (11:38)
[2023-02-24] MEDS ORDERED: HEPARIN SODIUM 1,000 UN/ML (10ML VL) ONE (11:38)
[2023-02-24] MEDS ORDERED: VERAPAMIL 2.5 MG/ML 2 ML AMP ONE (11:39)
[2023-02-24] MEDS ORDERED: fentaNYL (PF) 50 MCG/ML 2 ML AMP IV ONE (12:20)
[2023-02-24] MEDS ORDERED: VERAPAMIL SYRINGE (5 MG/10 ML) INTRAARTER ONE (12:23)
[2023-02-24] MEDS ORDERED: LIDOCAINE 1% INJ 10MG/ML (5 ML VIAL-PF) SQ ONE (12:23)
[2023-02-24] MEDS ORDERED: MIDAZOLAM 2 MG/2 ML VIAL IV ONE (12:25)
[2023-02-24] MEDS ORDERED: HEPARIN SODIUM 1,000 UN/ML (10ML VL) IV ONE (12:30)
[2023-02-24] MEDS ORDERED: RX INFO: IV CONTRAST WAS GIVEN 1 EACH MISC MISCELLANE PRN (12:38)
--- NOTE | 2023-02-24 12:44 | P.CARDCATH ---
Date of Procedure: 02/24/23 Description of Procedure: Cardiac Catheterization: The patient is a 52-year-old female with a history of hypertension and hyperlipidemia has been complaining of episode of chest discomfort and had an abnormal MPI. Recommendations were made regarding cardiac catheterization, the risks and the complications were discussed with the patient who is in full understanding and agreement. Procedure Description: Patient was brought to lab[facility] in fasting semi-sedated state after receiving Fentanyl and Benadryl achieiving moderate conscious sedated state. Using Xylocaine Anesthesia and Seldinger technique, a 6-[place] sheath was introduced in the right radial artery . Subsequently, selective coronary angiography was performed using a 5-[place] 3.5 bend right Gildardo catheter and 6-[place] 3.5 left Gildardo catheter. Multiple views of the coronary artery including hemiaxial views were obtained. The right Gildardo catheter was used to cross the aortic valve and LVEDP was calculated. Following that, catheter and sheath were removed. Hemostasis was obtained with deployment of TR band . There was no immediate complication. Patient was returned to room in stable condition. Of note, the patient received a total of 3500 units of intravenous heparin as well as intra-arterial verapamil. Findings: Left main: This is a large size vessel, bifurcating into LAD and left circumflex, left main has no high-grade stenosis LAD: This is a large size vessel reaching the apex giving rise to 2 diagonal branch, the second one is large in caliber. The LAD and its branches have no evidence of high-grade stenosis Left circumflex: This is a large nondominant vessel giving rise to 3 obtuse marginal branch the first one is very proximal. The left circumflex has no obstructive disease RCA: This is a large dominant vessel bifurcating distally to PDA and PLV, the right coronary artery has no evidence of obstructive disease Left Ventriculogram: Not performed Hemodynamics: There was no gradient across the aortic valve, LVEDP was 12-14 mmHg Conclusion: 1. Normal coronary arteries 2. Right dominance 3. Normal LVEDP Recommendations: I see no evidence of obstructive disease to explain her symptoms, her therapy with close observation and depending on her progress further recommendations will be made. The findings and the recommendations were discussed with the patient and the family and they were in full understanding and agreement. Duration of sedation is then minutes.
[2023-02-24] MEDS ORDERED: SODIUM CHLORIDE 0.9% 1,000 ML IV SCH (12:45)
[2023-02-24] MEDS ORDERED: IOPAMIDOL-370 100ML BTL INJ ONE (12:48)
[2023-02-24 13:03] VITALS: RESP 16
[2023-02-24 14:29] VITALS: PULSE 69
[2023-02-24 16:16] VITALS: BP 118/59
[2023-02-24] MEDS ORDERED: amLODIPine 5 MG TAB PO SCH (21:00)
[2023-02-24] MEDS ORDERED: PROPRANOLOL 10 MG TAB PO SCH (21:00)
[2023-02-25] MEDS ORDERED: ASPIRIN 81 MG PO SCH (09:00)
== END 2023-02-24 16:07 | disposition home or self-care (01) ==
LOC: CATHCVL 10:23
PROVIDERS: ATTEND Internal Medicine Interventional Cardiology
DX: I10 Essential (primary) hypertension (principal); E78.5 Hyperlipidemia, unspecified; R94.39 Abnormal result of other cardiovascular function study
CPT/HCPCS: 93458; 81025; C1769 ×2; C1894; J2250; J2001; J3010; J1644; Q9967

== ENCOUNTER → 2023-08-12 | Outpatient (CLI) | payer OTHER ==
--- NOTE | 2023-08-15 14:42 | MM ---
Reason for Exam: Screening (asymptomatic). Last mammogram was performed 2 year(s) and 3 month(s) ago. Patient History: Menarche at age 15. Patient has no children. Maternal grandmother had breast cancer, age 42. Niece had breast cancer under age 50. Sister had breast cancer, age 45. Sister had breast cancer at or over age 50. Risk Values: Mora 5 year model risk: 3.5%. NCI Lifetime model risk: 24.5%. Prior Study Comparison: 05/30/2019 Bilateral Screening Mammogram, [facility]. 06/15/2019 Bilateral Diagnostic Mammogram, [facility]. 05/28/2021 Bilateral Screening Mammogram, [facility]. Tissue Density: The breast tissue is heterogeneously dense. This may lower the sensitivity of mammography. Findings: Analyzed By CAD. There is no suspicious group of microcalcifications or new suspicious mass in either breast. Overall Assessment: Benign, BI-RAD 2 Management: Screening Mammogram of both breasts in 1 year. . Patient should continue monthly self-breast exams. A clinical breast exam by your physician is recommended on an annual basis. This exam should not preclude additional follow-up of suspicious palpable abnormalities. Note on Mora scores and lifetime risk: 1. A Mora score greater than 3% is considered moderate risk. If this is the case, consider specialist referral to assess eligibility for a risk reducing agent. 2. If overall lifetime risk for the development of breast cancer is 20% or higher, the patient may qualify for future screening with alternating mammogram and breast MRI. Electronically signed and approved by: Mikel Keating M.D. Radiologis
== END | disposition home or self-care (01) ==
LOC: RADMAMWWP 15:59
PROVIDERS: ATTEND Family Medicine
DX: Z12.31 Encounter for screening mammogram for malignant neoplasm of breast (principal); Z80.3 Family history of malignant neoplasm of breast
CPT/HCPCS: 77063; 77067

== ENCOUNTER → 2024-05-03 | Outpatient (CLI) | payer OTHER ==
[2024-05-03 14:30] VITALS: BP 123/82; PULSE 70; RESP 12; TEMP 98.1
--- NOTE | 2024-05-03 14:51 | P.SLEEP ---
History of Present Illness DATE: 05/03/2024 CONSULTATION/NEW PATIENT EVALUATION HISTORY OF PRESENT ILLNESS/SLEEP-WAKE EVALUATION: 53-year-old lady had been ev aluated in the sleep center for possible obstructive sleep apnea hypopnea syndrome. SLEEP SCHEDULE: Usually sleep schedule from 11:30 PM total 67 AM on weekdays and from midnight1 AM until 10 AM on weekend. FALLING ASLEEP: Sometimes patient has difficulties with falling asleep, has TV set in bedroom. DURING SLEEP: Patient sleeps on the back position with loud snoring and witnessed episodes of stop breathing during the sleep by her . Positive history of awakenings 3 times with nocturia, panic attacks, palpitation, heartburn, gasping for air, sweating. No history of hypnogogical amaral llucinations, sleep paralysis, or cataplexy. DURING THE DAY/WAKE STATE: In the morning patient wake up tired, falling asleep during the day. Positive history of claustrophobia, depression and anxiety.. [place] sleepiness scale is increased to 12. Patient take nap once a day 2 PM or 6 PM. PAST MEDICAL HISTORY: Hypertension, hyperlipidemia, asthma, arthritis, headaches sometimes starting in the morning after awakenings, acid reflux. PAST SURGICAL HISTORY: Right knee ACL surgical treatment in 2014, lumbar surgery. MEDICATIONS: Please see below. SOCIAL HISTORY: Please see below. FAMILY HISTORY: Hypertension, heart problems, cancer, emphysema, mental illness. REVIEW OF SYSTEMS: Loud snoring, multiple awakenings from sleep, sleepiness during the day. No fevers. No double vision. No recent chest pain. No shortness of breath. No abdominal pain. No bleeding episodes. No blood in urine. No seizure episodes. PHYSICAL EXAMINATION: GENERAL: A pleasant patient without any distress. VITAL SIGNS: Please see below, weight 159 pounds, BMI 32.1. HEENT: PERRLA, EOMI. Evaluation of oropharynx showed tongue protrudes midline, low position of soft palate Mallampati 3, wide pillars, retrognathia 1 to 2 mm. NECK: Supple. No JVD. Thyroid is not palpable. 13.5 inches in circumference. LUNGS: Clear to percussion and to auscultation. Good air exchange. No wheezing or rhonchi. HEART: S1, S2 regular. No murmurs, gallops or rubs. ABDOMEN: Soft and nontender. Bowel sounds are present. No organomegaly appreciated. EXTREMITIES: No clubbing or cyanosis. BRAZER REPAIR AND SALVAGE: Awake, alert, and oriented x3. Cranial nerves 2 to 7 intact. There is no fasciculation or atrophy noted. No focal deficits observed. ASSESSMENT: 1. Loud snoring, witnessed episodes of stop breathing during the sleep, small oropharyngeal airspace with low position of soft palate, wide pillars, retrognathia. Sleepiness during the day with [place] Sleepiness Scale increased to 12. Obstructive sleep apnea hypopnea syndrome. 2. Mild obesity BMI 32.1. 3. Hypertension. 4. Hyperlipidemia. 5 asthma. 6 . Arthritis. 7. Headaches. 8. Acid reflux. 9 . Status post lumbar surgery. 10. Status post right knee surgery for ACL problems. PLAN: 1. Polysomnography for evaluation of patient's breathing during sleep. 2. Following plan after reading sleep study. 3. Preferable position during sleep on the side. 4. No driving if patient feels any sleepiness. Patient is aware of civil and criminal liability for unsafe driving. 5. Sleep hygiene with regular sleep time for at least 7.5-8 hours. 6. Watching weight. Thank you very much for referring this patient for consultation. Sincerely, Philip Rivero MD, PhD, FAASM. Diplomat of [employer], Sleep Medicine Board by [employer] Officer [facility] [place] cc: Reina Kimabll PA-C Past Medical History Past Medical History: COPD, Hypertension, Thyroid Disorder Additional Past Medical History / Comment(s): sinus tachycardia and chronic back pain History of Any Multi-Drug Resistant Organisms: None Reported Past Surgical History: Back Surgery, Orthopedic Surgery Additional Past Surgical History / Comment(s): lumbar spine and R knee Past Anesthesia/Blood Transfusion Reactions: Previous Problems w/ Anesthesia Additional Past Anesthesia/Blood Transfusion Reaction / Comment(s): stopped breathing Past Psychological History: No Psychological Hx Reported Smoking Status: Never smoker Past Alcohol Use History: None Reported Past Drug Use History: None Reported Medications and Allergies Home Medications Medication Instructions Recorded Confirmed Type Gabapentin [Neurontin] 300 mg PO BID 03/05/19 05/03/24 History Albuterol Sulfate [Proair Hfa] 1 - 2 puff INHALATION Q6HR PRN 11/12/20 05/03/24 History Meloxicam [Mobic] 7.5 mg PO QAM 11/12/20 05/03/24 History Montelukast Sodium [Singulair] 10 mg PO HS 11/12/20 05/03/24 History Propranolol HCl 10 mg PO BID 11/12/20 05/03/24 History Sertraline [Zoloft] 25 mg PO HS 02/23/23 05/03/24 History amLODIPine [Norvasc] 5 mg PO HS 02/23/23 05/03/24 History Baclofen [Lioresal] 20 mg PO 05/03/24 History Tiotropium 18 Mcg/Puff [Spiriva] 1 puff INHALATION DAILY 05/03/24 05/03/24 History Allergies Allergy/AdvReac Type Severity Reaction Status Date / Time bee venom protein (honey bee) Allergy Severe Anaphylaxis Verified 02/24/23 10:36 aluminum Allergy Unknown blisters Verified 02/24/23 10:36 Sulfa (Sulfonamide Allergy Unknown MULTIPLE Verified 02/24/23 10:36 Antibiotics) FAMILY REACTION Physical Exam Vitals: Vital Signs Temp Pulse Resp BP Pulse Ox 05/03/24 14:29 98.1 F 70 12 123/82 97 Intake and Output 05/02/24 05/03/24 05/03/24 22:59 06:59 14:59 Other: Weight 72.121 kg Sleep Note - Sleep Data ESS Total: 12 - Sleep Note Sleep Note: Temperature: 98.1 F Pulse Rate: 70 Respiratory Rate: 12 Blood Pressure: 123/82 SpO2: 97 Height: 4 ft 11 in Weight: 72.121 kg BMI: Neck Circumference: 13.5
== END ==
LOC: 3 N SLEEP 13:42
PROVIDERS: ATTEND Internal Medicine
DX: G47.33 Obstructive sleep apnea (adult) (pediatric) (principal); M26.19 Other specified anomalies of jaw-cranial base relationship; E66.9 Obesity, unspecified; I10 Essential (primary) hypertension; E78.5 Hyperlipidemia, unspecified; M19.90 Unspecified osteoarthritis, unspecified site; J44.89 Other specified chronic obstructive pulmonary disease; R51.9 Headache, unspecified; K21.9 Gastro-esophageal reflux disease without esophagitis; Z98.890 Other specified postprocedural states; Z79.899 Other long term (current) drug therapy; Z91.030 Bee allergy status; Z88.2 Allergy status to sulfonamides; Z88.8 Allergy status to other drugs, medicaments and biological substances; Z68.32 Body mass index [BMI] 32.0-32.9, adult
CPT/HCPCS: 99211

== ENCOUNTER → 2024-09-10 | Outpatient (CLI) | payer OTHER ==
--- NOTE | 2024-09-11 10:46 | MM ---
Reason for Exam: Screening (asymptomatic). Last mammogram was performed 1 year(s) and 1 month(s) ago. Patient History: Menarche at age 15. Patient has no children. Maternal grandmother had breast cancer, age 42. Niece had breast cancer under age 50. Sister had breast cancer, age 45. Sister had breast cancer at or over age 50. Risk Values: Mora 5 year model risk: 3.6%. NCI Lifetime model risk: 24.1%. Prior Study Comparison: 06/15/2019 Bilateral Diagnostic Mammogram, [facility]. 05/28/2021 Bilateral Screening Mammogram, [facility]. 08/12/2023 Bilateral MG 3D screening mammo w/cad, [facility]. Tissue Density: The breasts are heterogeneously dense, which may obscure small masses. Findings: Analyzed By CAD. Right breast: There is no suspicious group of microcalcifications or new suspicious mass. Benign-appearing calcifications right breast. Left breast: There is no suspicious group of microcalcifications or new suspicious mass. Benign-appearing calcifications left breast. Overall Assessment: Benign, BI-RAD 2 Management: Screening Mammogram of both breasts in [address] [facility] will attempt to contact patient to return for supplemental views and ultrasound if indicated. Patient should continue monthly self-breast exams. A clinical breast exam by your physician is recommended on an annual basis. This exam should not preclude additional follow-up of suspicious palpable abnormalities. Note on Mora scores and lifetime risk: 1. A Mora score greater than 3% is considered moderate risk. If this is the case, consider specialist referral to assess eligibility for a risk reducing agent. 2. If overall lifetime risk for the development of breast cancer is 20% or higher, the patient may qualify for future screening with alternating mammogram and breast MRI. [facility], , 09/11/2024 10:43 AM. Electronically signed and approved by: Magdi Hazel DO
== END | disposition home or self-care (01) ==
LOC: RADMAMWWP 14:24
PROVIDERS: ATTEND Family Medicine
DX: Z12.31 Encounter for screening mammogram for malignant neoplasm of breast (principal); Z80.3 Family history of malignant neoplasm of breast; Z85.3 Personal history of malignant neoplasm of breast; R92.333 Mammographic heterogeneous density, bilateral breasts
CPT/HCPCS: 77063; 77067